=== PATIENT | male | born 1950 | race Caucasian/White ===

== ENCOUNTER 2016-11-11 10:35 | Inpatient (IN) | payer MEDICARE ==
[2016-11-11 12:12] VITALS: BP 144/84
[2016-11-11] MEDS ORDERED: Maalox 30 mL Cup PO PRN (13:18)
[2016-11-11] MEDS ORDERED: Magnesium Hydroxide (MOM) 30 mL UDC PO PRN (13:18)
[2016-11-12 09:11] LABS: ALB/GLOB RATIO 1.6 (1.0-1.8); ALKALINE PHOSPHATASE 53 U/L (34-104); ANION GAP 8.2 (7.0-16.0); BILIRUBIN,TOTAL 1.1 mg/dL (0.3-1.0); BUN - UREA NITROGEN 17 mg/dL (7-25); BUN/CREATININE RATIO 18.9; CALCIUM SERUM 9.4 mg/dL (8.6-10.3); CARBON DIOXIDE 28.7 mEq/L (21.0-31.0); CHLORIDE 100 mEq/L (98-107); CREATININE - SERUM 0.9 mg/dL (0.7-1.3); GLUCOSE 298 mg/dL (70-105); POTASSIUM SERUM 3.9 mEq/L (3.5-5.1); SGOT 23 U/L (13-39); SGPT/ALT 14 U/L (7-52); SODIUM SERUM 133 mEq/L (136-145)
[2016-11-12 09:12] LABS: CHOLESTEROL 162 mg/dL (<200); TRIGLYCERIDES 202 mg/dL (<150)
[2016-11-12 09:13] LABS: HEMOGLOBIN 16.7 gm/dL (12.6-17.4); MEAN CELL VOLUME 89.4 fl (80-99); MEAN CORPUSCULAR HEMOGLOBIN 29.2 pg (27.0-31.0); MEAN CORPUSCULAR HGB CONC 32.7 pg (28.0-36.0); MEAN PLATELET VOLUME 8.6 fl; PLATELET COUNT 80 Th/cmm (150-400); RED BLOOD COUNT 5.71 Mil/cmm (3.80-5.80); RED CELL DISTRIBUTION WIDTH 13.9 % (11.5-20.0)
--- NOTE | 2016-11-12 09:58 | Diagnostic Imaging Report ---
CHEST X-RAY: AP view INDICATION: Pneumonia COMPARISON: None FINDINGS: There is no focal consolidation or pleural effusions The heart is normal in size. Oral left rib fractures are noted. Left clavicular fracture is noted. IMPRESSION: No focal acute pulmonary process.
[2016-11-12] MEDS: Multivitamin Tab PO SCH (10:09)
--- NOTE | 2016-11-12 10:32 | Psychosocial Evaluation ---
INITIAL PSYCHIATRIC EVALUATION CHIEF COMPLAINT: "I tried to hurt myself." JUSTIFICATION FOR ADMISSION: The patient is on a 72-hour hold for being danger to self. HISTORY OF PRESENT ILLNESS: The patient is a 66-year-old male with a history of depression, anxiety, apparently cut himself repeatedly over both wrists using a knife and took 5 pills of Cymbalta at the same time. The patient ended up in a hospital at [place] where he was evaluated, then transferred to [facility] where he admits to feeling depressed and anxious. He said he has not seen a psychiatrist recently and he has a therapist. The patient was started on Cymbalta on 10/08/2016 and he was not sure if it was helping him enough. The patient stated his has been having problems since the year 1999 and also in year 2006, she had surgery and she has been disabled. The patient said he was taking some of her pain medications until a few weeks ago and she caught him and she was upset with him. He also admits to the occasional alcohol use that becomes heavy. The patient admits to feeling depressed, boredom, feeling helpless and useless and low energy and poor motivation and increased anxiety. PAST PSYCHIATRIC HISTORY: No prior psychiatric hospitalizations. No prior suicide attempts. PAST MEDICAL HISTORY: Possible leukemia with recent diagnosis, H and P. As per Dr. Devlin. 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 He has 3 grown children. One daughter is in [facility], one daughter in [place], and one son in [place] in [facility]. The patient states his is very supportive. MENTAL STATUS EXAM: The patient is cooperative, made fair eye contacts. He appears to be stated age. His speech was fluent, slightly fast. Affect is depressed and anxious. No other visual hallucinations or paranoid delusions. He is alert, awake, and oriented x3. Immediate memory is intact, able to tell what day of the week. Remote memory is intact, able to tell his date of . Recent memory is intact, able to tell what led to his admission. PATIENT'S STRENGTH: The patient is accepting treatment. PATIENT'S WEAKNESS: Difficulty coping with his depression stressors. ASSESSMENT: Major depressive disorder, recurrent, severe without psychosis. History of alcohol abuse and opioid abuse. Medical, as per medical history. At this time, we will admit the patient for hospitalization. We will start individual, milieu, and group therapy and we will assess . We will arrange for a family meeting. ESTIMATED LENGTH OF STAY: 7 days. CRITERIA FOR DISCHARGE: Improved condition, less anxiety, less depression, no suicidal thoughts, safe disposition, and outpatient treatment plan. [facility]# [id number]
[2016-11-12 11:01] LABS: WHITE BLOOD COUNT 142.6 Th/cmm (4.8-10.8)
[2016-11-12] MEDS: INSULIN ASPART SLIDING SCALE 100 UNITS/ML UNIT SUBQ SCH ×3 (12:11→20:49)
[2016-11-12 12:13] LABS: NEUTROPHILS 13 % (40-80); TOTAL CELLS COUNTED 100
[2016-11-12 12:14] LABS: PLATELET ESTIMATE DECREASED PLATELETS (NORMAL); PLATELET MORPHOLOGY NORMAL (NORMAL)
--- NOTE | 2016-11-12 14:21 | History & Physical ---
CHIEF COMPLAINT: Suicidal ideas. HISTORY OF PRESENT ILLNESS: This is the case of a 66-year-old white male who had history of depression. The patient ran off of [employer] and he felt so depressed. The patient had suicidal ideas, reason why he was sent to Emergency Room. PAST MEDICAL HISTORY: The patient referred that he do not know he had diabetes and he referred that long time ago, doctor told that he had leukemia, but never followed up. SOCIAL HISTORY: The patient lives at home ____. The patient referred that lately he has been drinking 1 bottle of whiskey daily. ALLERGIES: No known allergies. MEDICATIONS: Reviewed. FAMILY HISTORY: Unremarkable. PAST SURGICAL HISTORY: None. REVIEW OF SYSTEMS: LUNGS: The patient denies shortness of breath. HEART: The patient denies chest pain. ABDOMEN: Unremarkable. EXTREMITIES: Unremarkable. PSYCHIATRIC: The patient refers depression and continuing crying with suicidal ideas. PHYSICAL EXAMINATION: GENERAL: Does reveal a fairly nourished and developed white male, awake, alert, depressed, crying during interview. HEENT: Head is normocephalic and atraumatic. Eyes: Pupils reactive to light. Nose: No evidence of nasal obstruction. Ears: No evidence of any discharge. Mouth: Fairly ____. LUNGS: Bilateral air entry. No wheezing, no crackles. HEART: Regular rate and rhythm. ABDOMEN: Soft, nontender, bowel sound is present. EXTREMITIES: Full movement of all extremities. No edema. NEUROLOGICAL: The patient is awake, alert, depressed, crying. Nerves 2-12 grossly intact. Neurologic examination is completed. No deficit at this moment. IMPRESSION: 1. Depression. 2. Suicidal ideas. 3. Diabetes mellitus. 4. Leukemia by history. PLAN: 1. The patient will be admitted in the Geropsych Unit. 2. The patient will be followed by Psychiatry. 3. Metformin, ____ and insulin sliding scale. 4. CBC and CMP at a.m. JOB# [id number]
--- NOTE | 2016-11-13 02:38 | Progress Notes ---
SUBJECTIVE: The patient was seen, discussed with staff, and chart reviewed. Remains severely depressed, anxious, isolative, feeling helpless and useless. His insight is still limited, but overall, he has been accepting treatment. Talked about how dealing with his for the past few years affected him. The patient said his has been severely disabled and has been his main bagman/woman. The patient said his son has been supportive, called him from [place] and wanted to live with him. Also his daughter ____ has been very supportive. The patient has no auditory or visual hallucinations. No paranoid delusions. ASSESSMENT: Major depressive disorder, recurrent, severe without psychosis. PLAN: We will continue hospitalization. Continue supportive measure, continue to monitor closely. Discussed medications with the patient. The patient took Cymbalta with late response for over a month. I discussed with the patient trying Lexapro. He is in agreement. We will start Lexapro 5 mg p.o. daily. Also discussed his opioid abuse issues, which has been a problem for him. We will monitor closely while in the hospital. JOB# [id number]
[2016-11-13] MEDS: INSULIN ASPART SLIDING SCALE 100 UNITS/ML UNIT SUBQ SCH ×4 (06:34→20:17)
--- NOTE | 2016-11-13 08:35 | General Progress Note ---
Subjective - Review of Systems Service Date: 11/13/16 Subjective: I fell better Objective - Results Result Diagrams: 11/12/16 08:35 11/12/16 08:35 Recent Labs: Laboratory Last Values WBC 142.6 Th/cmm (4.8-10.8) H* 11/12/16 08:35 RBC 5.71 Mil/cmm (3.80-5.80) 11/12/16 08:35 Hgb 16.7 gm/dL (12.6-17.4) 11/12/16 08:35 Hct 51.0 % (39.0-49.0) H 11/12/16 08:35 MCV 89.4 fl (80-99) 11/12/16 08:35 MCH 29.2 pg (27.0-31.0) 11/12/16 08:35 MCHC Differential 32.7 pg (28.0-36.0) 11/12/16 08:35 RDW 13.9 % (11.5-20.0) 11/12/16 08:35 Plt Count 80 Th/cmm (150-400) L 11/12/16 08:35 MPV 8.6 fl 11/12/16 08:35 Neutrophils (Manual) 13 % (40-80) L 11/12/16 08:35 Lymphocytes 84 % (20-50) H 11/12/16 08:35 Eosinophils Not Reportable 11/12/16 08:35 Atypical Lymphocytes 3 % 11/12/16 08:35 Platelet Estimate DECREASED PLATELETS (NORMAL) 11/12/16 08:35 Platelet Morphology NORMAL (NORMAL) 11/12/16 08:35 RBC Morph Micro Appear NORMAL (NORMAL) 11/12/16 08:35 Smear Path Review SEE BELOW 11/12/16 08:35 Sodium 133 mEq/L (136-145) L 11/12/16 08:35 Potassium 3.9 mEq/L (3.5-5.1) 11/12/16 08:35 Chloride 100 mEq/L (98-107) 11/12/16 08:35 Carbon Dioxide 28.7 mEq/L (21.0-31.0) 11/12/16 08:35 Anion Gap 8.2 (7.0-16.0) 11/12/16 08:35 BUN 17 mg/dL (7-25) 11/12/16 08:35 Creatinine 0.9 mg/dL (0.7-1.3) 11/12/16 08:35 Est GFR ( Amer) > 60.0 ml/min 11/12/16 08:35 Est GFR (Non-Af Amer) > 60.0 ml/min 11/12/16 08:35 BUN/Creatinine Ratio 18.9 11/12/16 08:35 Glucose 298 mg/dL (70-105) H 11/12/16 08:35 POC Glucose 226 MG/DL (70 - 105) H 11/12/16 20:39 Hemoglobin A1c % 8.4 % (4.0-6.0) H 11/12/16 08:35 Calcium 9.4 mg/dL (8.6-10.3) 11/12/16 08:35 Total Bilirubin 1.1 mg/dL (0.3-1.0) H 11/12/16 08:35 AST 23 U/L (13-39) 11/12/16 08:35 ALT 14 U/L (7-52) 11/12/16 08:35 Alkaline Phosphatase 53 U/L (34-104) 11/12/16 08:35 Total Protein 6.9 gm/dL (6.0-8.3) 11/12/16 08:35 Albumin 4.2 gm/dL (4.2-5.5) 11/12/16 08:35 Globulin 2.7 gm/dL 11/12/16 08:35 Albumin/Globulin Ratio 1.6 (1.0-1.8) 11/12/16 08:35 Triglycerides 202 mg/dL (<150) H 11/12/16 08:35 Cholesterol 162 mg/dL (<200) 11/12/16 08:35 LDL Cholesterol Direct 102 mg/dL (75-193) 11/12/16 08:35 HDL Cholesterol 21 mg/dL (23-92) L 11/12/16 08:35 TSH 3.79 uIU/ml (0.34-5.60) 11/12/16 08:35 - Physical Exam Vitals and I&O: Vital Signs Temp 98 F 11/12/16 18:10 Pulse 78 11/12/16 18:10 Resp 19 11/12/16 18:10 BP 130/80 11/12/16 18:10 Pulse Ox 97 11/12/16 18:10 Intake & Output 11/12/16 11/13/16 11/13/16 18:59 06:59 18:59 Intake Total 1000 Balance 1000 Intake: Oral 1000 Other: # Voids 3 # Bowel Movements 1 Active Medications: Current Medications Acetaminophen (Tylenol) 650 mg PO Q4HR PRN PRN Reason: Pain (Mild) & Temp > 101F Stop: 01/10/17 13:17 Al Hydrox/Mg Hydrox/Simethicone (Maalox) 30 ml PO Q4HR PRN PRN Reason: GI DISTRESS Stop: 01/10/17 13:17 Escitalopram Oxalate (Lexapro) 5 mg PO DAILY BATOOL PRN Reason: Protocol Stop: 01/12/17 08:59 Insulin Aspart (Novolog Insulin Sliding Scale) 0 units SUBQ ACHS BATOOL PRN Reason: Protocol Stop: 01/11/17 11:29 Last Admin: 11/13/16 06:34 Dose: Not Given Lorazepam (Ativan) 0.5 mg PO Q4HR PRN; Protocol PRN Reason: Anxiety Stop: 12/11/16 13:17 Lorazepam (Ativan) 1 mg PO DAILY PRN; Protocol PRN Reason: Agitation Stop: 01/11/17 09:28 Last Admin: 11/12/16 10:08 Dose: 1 mg Metformin HCl (Glucophage) 500 mg PO DAILY [facility] Stop: 01/11/17 09:44 Last Admin: 11/12/16 10:09 Dose: 500 mg Multivitamins/Vitamin C (Theragran) 1 tab PO DAILY BATOOL Stop: 01/11/17 08:59 Last Admin: 11/12/16 10:09 Dose: 1 tab Zolpidem Tartrate (Ambien) 5 mg PO HS PRN PRN Reason: Insomnia Stop: 01/10/17 13:17 Last Admin: 11/12/16 20:33 Dose: 5 mg General: Alert, Oriented x3, Cooperative, No acute distress HEENT: Atraumatic Cardiovascular: Regular rate Lungs: Clear to auscultation Abdomen: Bowel sounds, Soft Extremities: Other (No edema) Neurological: Normal gait Skin: Other (Warm and dry) Psych/Mental Status: Mental status NL Assessment/Plan - Assessment Assessment: Patient is awake calm in no acute distress. CBC shows Lymphocytic leukemia. Patient has an appointment with oncologist next week. - Plan Plan: Patient will continue with psychiatric follow up.
[2016-11-13] MEDS: Multivitamin Tab PO SCH (08:50)
[2016-11-13] MEDS: Escitalopram Oxalate 5 mg Tab PO SCH (08:50)
--- NOTE | 2016-11-13 22:16 | Progress Notes ---
SUBJECTIVE: I met this patient, discussed with staff. Remains anxious, still depressed, easily overwhelmed, still with episodes of helplessness, talked about taking care of his since 2006 and how it affected him. It took ____ on him. The patient now is getting more support from his children and everybody is offering him to stay with them and he ____ still has to figure out who is going to take care of his given her illness. The patient has chronic mental illness and physical debility. The patient still with some helplessness, however, he started taking Lexapro and so far has no side effects. ASSESSMENT: The patient is still severely depressed. PLAN: We will continue stabilization. Continue medication management. Continue supportive measures. Encourage the patient to express his emotions. Psychologic consultation will be also requested. JOB# [id number]
[2016-11-14] MEDS: INSULIN ASPART SLIDING SCALE 100 UNITS/ML UNIT SUBQ SCH ×2 (06:32→11:37)
[2016-11-14] MEDS: Escitalopram Oxalate 5 mg Tab PO SCH (08:52)
[2016-11-14] MEDS: Multivitamin Tab PO SCH (08:53)
--- NOTE | 2016-11-14 13:18 | General Progress Note ---
Subjective - Review of Systems Service Date: 11/14/16 Subjective: I fell better Objective - Results Result Diagrams: 11/12/16 08:35 11/12/16 08:35 Recent Labs: Laboratory Last Values WBC 142.6 Th/cmm (4.8-10.8) H* 11/12/16 08:35 RBC 5.71 Mil/cmm (3.80-5.80) 11/12/16 08:35 Hgb 16.7 gm/dL (12.6-17.4) 11/12/16 08:35 Hct 51.0 % (39.0-49.0) H 11/12/16 08:35 MCV 89.4 fl (80-99) 11/12/16 08:35 MCH 29.2 pg (27.0-31.0) 11/12/16 08:35 MCHC Differential 32.7 pg (28.0-36.0) 11/12/16 08:35 RDW 13.9 % (11.5-20.0) 11/12/16 08:35 Plt Count 80 Th/cmm (150-400) L 11/12/16 08:35 MPV 8.6 fl 11/12/16 08:35 Neutrophils (Manual) 13 % (40-80) L 11/12/16 08:35 Lymphocytes 84 % (20-50) H 11/12/16 08:35 Eosinophils Not Reportable 11/12/16 08:35 Atypical Lymphocytes 3 % 11/12/16 08:35 Platelet Estimate DECREASED PLATELETS (NORMAL) 11/12/16 08:35 Platelet Morphology NORMAL (NORMAL) 11/12/16 08:35 RBC Morph Micro Appear NORMAL (NORMAL) 11/12/16 08:35 Smear Path Review SEE BELOW 11/12/16 08:35 Sodium 133 mEq/L (136-145) L 11/12/16 08:35 Potassium 3.9 mEq/L (3.5-5.1) 11/12/16 08:35 Chloride 100 mEq/L (98-107) 11/12/16 08:35 Carbon Dioxide 28.7 mEq/L (21.0-31.0) 11/12/16 08:35 Anion Gap 8.2 (7.0-16.0) 11/12/16 08:35 BUN 17 mg/dL (7-25) 11/12/16 08:35 Creatinine 0.9 mg/dL (0.7-1.3) 11/12/16 08:35 Est GFR ( Amer) > 60.0 ml/min 11/12/16 08:35 Est GFR (Non-Af Amer) > 60.0 ml/min 11/12/16 08:35 BUN/Creatinine Ratio 18.9 11/12/16 08:35 Glucose 298 mg/dL (70-105) H 11/12/16 08:35 POC Glucose 144 MG/DL (70 - 105) H 11/14/16 11:33 Hemoglobin A1c % 8.4 % (4.0-6.0) H 11/12/16 08:35 Calcium 9.4 mg/dL (8.6-10.3) 11/12/16 08:35 Total Bilirubin 1.1 mg/dL (0.3-1.0) H 11/12/16 08:35 AST 23 U/L (13-39) 11/12/16 08:35 ALT 14 U/L (7-52) 11/12/16 08:35 Alkaline Phosphatase 53 U/L (34-104) 11/12/16 08:35 Total Protein 6.9 gm/dL (6.0-8.3) 11/12/16 08:35 Albumin 4.2 gm/dL (4.2-5.5) 11/12/16 08:35 Globulin 2.7 gm/dL 11/12/16 08:35 Albumin/Globulin Ratio 1.6 (1.0-1.8) 11/12/16 08:35 Triglycerides 202 mg/dL (<150) H 11/12/16 08:35 Cholesterol 162 mg/dL (<200) 11/12/16 08:35 LDL Cholesterol Direct 102 mg/dL (75-193) 11/12/16 08:35 HDL Cholesterol 21 mg/dL (23-92) L 11/12/16 08:35 TSH 3.79 uIU/ml (0.34-5.60) 11/12/16 08:35 RPR NONREACTIVE (NONREACTIVE) 11/12/16 08:35 - Physical Exam Vitals and I&O: Vital Signs Temp 98.3 F 11/14/16 11:53 Pulse 92 11/14/16 11:53 Resp 20 11/14/16 11:53 BP 124/84 11/14/16 11:53 Pulse Ox 96 11/14/16 11:53 Intake & Output 11/13/16 11/14/16 11/14/16 18:59 06:59 18:59 Intake Total 120 Balance 120 Intake: Oral 120 Other: # Voids 3 Active Medications: Current Medications Acetaminophen (Tylenol) 650 mg PO Q4HR PRN PRN Reason: Pain (Mild) & Temp > 101F Stop: 01/10/17 13:17 Al Hydrox/Mg Hydrox/Simethicone (Maalox) 30 ml PO Q4HR PRN PRN Reason: GI DISTRESS Stop: 01/10/17 13:17 Escitalopram Oxalate (Lexapro) 10 mg PO DAILY BATOOL PRN Reason: Protocol Stop: 01/13/17 11:50 Insulin Aspart (Novolog Insulin Sliding Scale) 0 units SUBQ ACHS BATOOL PRN Reason: Protocol Stop: 01/11/17 11:29 Last Admin: 11/14/16 11:37 Dose: Not Given Lorazepam (Ativan) 0.5 mg PO Q4HR PRN; Protocol PRN Reason: Anxiety Stop: 12/11/16 13:17 Lorazepam (Ativan) 1 mg PO DAILY PRN; Protocol PRN Reason: Agitation Stop: 01/11/17 09:28 Last Admin: 11/12/16 10:08 Dose: 1 mg Metformin HCl (Glucophage) 500 mg PO DAILY [facility] Stop: 01/11/17 09:44 Last Admin: 11/14/16 08:53 Dose: 500 mg Multivitamins/Vitamin C (Theragran) 1 tab PO DAILY BATOOL Stop: 01/11/17 08:59 Last Admin: 11/14/16 08:53 Dose: 1 tab Zolpidem Tartrate (Ambien) 5 mg PO HS PRN PRN Reason: Insomnia Stop: 01/10/17 13:17 Last Admin: 11/13/16 20:24 Dose: 5 mg General: Alert, Oriented x3, Cooperative, No acute distress HEENT: Atraumatic Neck: Supple Cardiovascular: Regular rate Lungs: Clear to auscultation Abdomen: Bowel sounds, Soft Extremities: Other (No edema) Neurological: Normal gait Skin: Other (Warm and dry) Psych/Mental Status: Mental status NL Assessment/Plan - Assessment Assessment: Patient is awake calm in no acute distress. CBC shows Lymphocytic leukemia. Patient has an appointment with oncologist next week. - Plan Plan: Patient will be discharge
--- NOTE | 2016-11-14 18:51 | Discharge Summary ---
REASON FOR HOSPITALIZATION: Major depressive disorder, recurrent, moderate to severe. HISTORY OF PRESENT ILLNESS: The patient is a 66-year-old male with a history of depression and anxiety, cut himself over the left and right wrist area using a knife superficially and took 5 pills of Cymbalta. The patient ended up at the hospital in [place], where he was evaluated, medically cleared and transferred to [facility]. The patient admits to feeling anxious and depressed, said Cymbalta has not been helping him. The patient was stressed out because he was taking care of his since 2006. He felt trapped and after he was actually seeking help. The patient said he was not ____ himself, but he was just feeling anxious and felt stuck. HOSPITALIZATION COURSE: Individual, milieu and group therapy was started. The patient was given Lexapro. The patient's condition improved. His family, his children were very supportive. The patient throughout his stay in the hospital denied being actively suicidal. On 11/14/2016, the patient was discharged home to his daughter as per her request and as per his request. The patient denied that he is having suicidal thoughts. The patient was pleasant and his affect was much brighter. The patient denied any psychosis and his thought process is logical and goal oriented. Daughter was insisting on taking him home and the patient felt safe staying with his daughter at home. FINAL DIAGNOSIS: Major depressive disorder, recurrent. MEDICAL: Leukemia and diabetes. CONDITION ON DISCHARGE: Improved. No suicidal thoughts. Brighter affect. DISPOSITION: Home to his daughter, to follow up with outpatient service. This patient is to follow up at [facility] in [place]. The patient was provided with the phone number and address. JOB# [id number]
[2016-11-15] MEDS ORDERED: Escitalopram Oxalate 5 mg Tab PO SCH (09:00)
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
== END 2016-11-14 15:30 | disposition home or self-care (01) | DRG 885 ==
LOC: GERO 10:35
DX: F33.2 Major depressive disorder, recurrent severe without psychotic features (principal); C91.90 Lymphoid leukemia, unspecified not having achieved remission; F41.9 Anxiety disorder, unspecified; E11.9 Type 2 diabetes mellitus without complications
CPT/HCPCS: 36415-UA; 71010-TC; 80053-TC; 80061-TC; 82948-90; 83036-90; 84443-TC; 85007-TC; 85027-TC; 86592-TC; 90899; J1815